=== PATIENT | female | born 1975 | race Hispanic/Latino ===

== ENCOUNTER 2022-12-13 20:49 | Emergency (ER) | payer BC, OTHER ==
[~2022-12-13] VITALS: Ht 162.6 cm; Wt 113.4 kg
[2022-12-13 20:59] VITALS: BP 127/68
[2022-12-13] MEDS ORDERED: KETOROLAC 30MG VIAL (30MG/ML) IM ONE (22:00)
[2022-12-13 22:22] LABS: BASOPHILS % (AUTO) 0.6 % (0.0-5.0); EOSINOPHILS % (AUTO) 2.4 % (0.0-8.0); HEMATOCRIT 41.7 % (36-48); LYMPHOCYTES % (AUTO) 30.9 % (21.0-51.0); MEAN CORPUSCULAR HEMOGLOBIN 29.3 pg (27.0-33.0); MEAN CORPUSCULAR HGB CONC 33.1 g/dL (32.0-36.0); MEAN CORPUSCULAR VOLUME 88.5 fL (79-99); MONOCYTES % (AUTO) 7.1 % (3.0-13.0); NEUTROPHILS % (AUTO) 58.6 % (40.0-77.0); PLATELET COUNT (AUTO) 256 K/uL (130-400); RED BLOOD CELL COUNT(AUTO) 4.71 MIL/uL (4.00-5.50); RED CELL DISTRIBUTION WIDTH 13.2 % (11.0-15.5); WHITE BLOOD COUNT (AUTO) 11.3 K/uL (4.8-10.8)
[2022-12-13 22:27] LABS: APPEARANCE,URINE CLEAR (CLEAR); BILIRUBIN,URINE NEGATIVE (NEGATIVE); COLOR,URINE YELLOW (YELLOW); GLUCOSE, URINE (UA) NEGATIVE (NEGATIVE); KETONES,URINE 5 mg/dL (NEGATIVE); LEUKOCYTE ESTERASE ,URINE 75 Leu/uL (NEGATIVE); NITRATE,URINE NEGATIVE (NEGATIVE); OCCULT BLOOD,URINE SMALL (NEGATIVE); PH,URINE 5.5 (5.0-8.0); PROTEIN,URINE 30 mg/dL (NEGATIVE)
[2022-12-13 22:32] LABS: POTASSIUM 3.3 mmol/L (3.5-5.1)
[2022-12-13] MEDS ORDERED: CYCL10TA16 PO (22:33)
[2022-12-13] MEDS ORDERED: SULF1TAB42 PO (22:36)
[2022-12-13 22:37] LABS: ALBUMIN 3.8 g/dL (3.5-5.0); MUCUS,URINE MOD LPF (None Seen); SQUAMOUS EPITHELIAL CELL,UR RARE /HPF (0-2); TOTAL PROTEIN, SERUM 7.4 g/dL (6.0-8.3)
[2022-12-13] MEDS ORDERED: POTASSIUM BICARB/CIT AC 25 MEQ TABLET.EFF ONE (22:45)
[2022-12-13] MEDS ORDERED: POTASSIUM BICARB/CIT AC 25 MEQ TABLET.EFF PO ONE (23:00)
== END 2022-12-13 22:56 | disposition home or self-care (01) ==
LOC: EDH 20:49
DX: M62.830 Muscle spasm of back (principal); M79.7 Fibromyalgia; N39.0 Urinary tract infection, site not specified; E03.9 Hypothyroidism, unspecified; Z79.1 Long term (current) use of non-steroidal anti-inflammatories (NSAID); Z20.822 Contact with and (suspected) exposure to COVID-19; Z88.0 Allergy status to penicillin
CPT/HCPCS: 99284; 87635; 80053; 85025; 87088; 87880; 87804 ×2; 81001; 36415; 96372; C9803; J1885

== ENCOUNTER 2023-02-23 20:36 | Emergency (ER) | payer BC ==
[~2023-02-23 20:36] MED LIST: CYCL10TA16 PO; SULF1TAB42 PO
== END 2023-02-23 22:14 | disposition left against medical advice (07) ==
LOC: EDH 20:36
DX: K64.9 Unspecified hemorrhoids (principal); Z53.21 Procedure and treatment not carried out due to patient leaving prior to being seen by health care provider

== ENCOUNTER 2024-05-12 13:27 | Emergency (ER) | payer BC ==
[~2024-05-12] VITALS: Ht 165.1 cm; Wt 113.4 kg
[2024-05-12] MEDS: HYDROMORPHONE 1 MG INJ IVP ONE ×2 (14:49→16:19)
[2024-05-12 16:20] LABS: HEMATOCRIT 39.8 % (36-48); MEAN CORPUSCULAR HEMOGLOBIN 29.7 pg (27.0-33.0); MEAN CORPUSCULAR HGB CONC 33.2 g/dL (32.0-36.0); MEAN CORPUSCULAR VOLUME 89.4 fL (79-99); PLATELET COUNT (AUTO) 250 K/uL (130-400); RED BLOOD CELL COUNT(AUTO) 4.45 MIL/uL (4.00-5.50); RED CELL DISTRIBUTION WIDTH 13.1 % (11.0-15.5)
[2024-05-12 16:24] VITALS: BP 140/75; PULSE 83; RESP 18; O2SAT 99
[2024-05-12 16:26] LABS: BASOPHILS # (AUTO) 0.05 K/uL (0.00-0.20); BASOPHILS % (AUTO) 0.4 % (0.0-5.0); EOSINOPHILS # (AUTO) 0.04 K/uL (0.00-0.70); EOSINOPHILS % (AUTO) 0.3 % (0.0-8.0); IMMATURE GRANULOCYTE ABSOLUTE 0.13 K/uL (0-1); LYMPHOCYTES % (AUTO) 16.3 % (21.0-51.0); MONOCYTES # (AUTO) 0.5 K/uL (0.1-1.0); MONOCYTES % (AUTO) 4.4 % (3.0-13.0); NEUTROPHILS # (AUTO) 9.3 K/uL (1.8-7.7); NEUTROPHILS % (AUTO) 77.5 % (40.0-77.0)
[2024-05-12 16:32] LABS: CREATININE 0.7 mg/dL (0.5-1.0); POTASSIUM 3.9 mmol/L (3.5-5.1)
[2024-05-12] MEDS ORDERED: HYDR-4381 PO (16:36)
== END 2024-05-12 17:23 | disposition home or self-care (01) ==
LOC: EDH 13:27
DX: M54.89 Other dorsalgia (principal); E03.9 Hypothyroidism, unspecified; M79.7 Fibromyalgia; Z88.0 Allergy status to penicillin; Z79.899 Other long term (current) drug therapy; Z90.710 Acquired absence of both cervix and uterus; W11.XXXA Fall on and from ladder, initial encounter; Y93.89 Activity, other specified; Y92.89 Other specified places as the place of occurrence of the external cause; Y99.8 Other external cause status
CPT/HCPCS: 99285; 72125; 96374; 80048; 85025; 36415; 71250; 96376; J1170 ×2

== ENCOUNTER 2025-09-20 21:43 | Emergency (ER) | payer BC ==
[~2025-09-20] VITALS: Ht 165.1 cm; Wt 113.4 kg
--- NOTE | 2025-09-21 00:09 | HMCIMG ---
EXAM: CT Head Without IV contrast. CLINICAL HISTORY: Persistent right-sided headache TECHNIQUE: Axial computed tomography images of the head/brain without intravenous contrast. COMPARISON: None provided. FINDINGS: BRAIN: No evidence of acute hemorrhage. No mass lesion. No CT evidence for acute territorial infarct. No midline shift or extra-axial collections. VENTRICLES: No hydrocephalus. ORBITS: The orbits are unremarkable. SINUSES AND MASTOIDS: The paranasal sinuses and mastoid air cells are clear. BONES: No fracture. SOFT TISSUES: Unremarkable. IMPRESSION: No evidence of acute hemorrhage. No mass lesion. No CT evidence for acute territorial infarct. No evidence of any mass lesion or hydrocephalus. /Fritch
--- NOTE | 2025-09-21 00:28 | ERN ---
General Chief Complaint: Headache Stated Complaint: C/O HEADACHE ONSET YESTERDAY Time Seen by MD: 21:44 Time Seen by Midlevel: 21:44 Source: patient History of Present Illness Initial Comments The patient is a 49-year-old female presenting to the emergency department for evaluation of a right-sided headache that started yesterday and progressively worsened today. She denies any vision changes, weakness, numbness, or any other symptoms at this time. Denies any fall or head injury. Denies any nausea, vomiting, or any other symptoms Allergies: Coded Allergies: Penicillins (Unverified Allergy, Unknown, 12/13/22) Home Meds Active Scripts Midodrine HCl (Midodrine HCl) 2.5 Mg Tablet, 2.5 MG PO AD for hypotension, #15 TAB Prov:HAYLEE SANCHEZ MD 04/30/25 Levofloxacin (Levaquin 750Mg Tabs) 750 Mg Tablet, 250 MG PO DAILY for uti for 3 Days, #3 TAB 0 Refills Prov:HAYLEE SANCHEZ MD 04/30/25 Reported Medications Ropinirole HCl (Ropinirole HCl) 2 Mg Tablet, 1 TAB PO HS for 30 Days, #30 TAB 0 Refills 04/29/25 Phentermine HCl (Phentermine HCl) 37.5 Mg Capsule, 1 CAP PO DAILY for 30 Days, #30 CAP 0 Refills 04/29/25 Duloxetine HCl (Duloxetine HCl) 60 Mg Capsule.dr, 1 CAP PO DAILY for 30 Days, #30 CAP 0 Refills 04/29/25 Pregabalin (Pregabalin) 100 Mg Capsule, 1 CAP PO TID MDD 3 Capsule(s) for 30 Days, #90 CAP 0 Refills 04/29/25 Docusate Sodium (Colace) 100 Mg Capsule, 1 CAP PO BID for 30 Days, #60 CAP 0 Refills 04/29/25 Topiramate (Topiramate) 50 Mg Tablet, 1 TAB PO BID for 30 Days, #60 TAB 0 Refills 04/29/25 Levothyroxine Sodium (Levothyroxine) 125 Mcg Capsule, 1 CAP PO DAILY for 30 Days, #30 CAP 0 Refills 04/29/25 Tizanidine HCl (Tizanidine HCl) 2 Mg Capsule, 2 MG PO TID, CAP 04/29/25 Plecanatide (Trulance) 3 Mg Tablet, 3 MG PO DAILY, TAB 04/29/25 Buspirone HCl (Buspirone HCl) 5 Mg Tablet, 1 TAB PO BID for 30 Days, #60 TAB 0 Refills 04/29/25 Cyclobenzaprine HCl (Cyclobenzaprine HCl) 5 Mg Tablet, 1 TAB PO HSPRN PRN for muscle spasms for 30 Days, #30 TAB 0 Refills 04/29/25 Past Medical History Past Medical History: Fibromyalgia, Other Medical History Other: VERTIGO Past Surgical History: Hysterectomy, Other ROS Dictation CONSTITUTIONAL: Negative except for HPI HEAD/FACE: Negative except for HPI EENT: Negative except for HPI RESPIRATORY: Negative except for HPI GASTROINTESTINAL/ABDOMINAL: Negative except for HPI GENITOURINARY: Negative except for HPI MUSCULOSKELETAL: Negative except for HPI INTEGUMENTARY: Negative except for HPI NEUROLOGICAL/PSYCH: Negative except for HPI HEMATOLOGIC/LYMPHATIC: Negative except for HPI All Systems Negative, Except as noted above. 13 point review of systems assessed and all negative except for above. Physical Exam Physical Exam Dictation Vital Signs reviewed General Appearance: Alert, oriented x 3, no acute distress, well developed, nourished. Head and Face: non-traumatic. Eyes: PERRL, pink conjunctivas, eyelid no trauma, anterior chamber with arcus senilis. Ears: Pinnas intact and no signs of trauma or erythema ear canals clear and no discharge TM no erythema Nose: No discharge, no bleeding. Oropharynx: Mouth normal, tongue pink, pharynx clear,no erythema, tonsils no exudates, no abscesses noted, mucous membrane moist Neck: Supple, non-tender, no thyromegaly, no masses, no JVD, no bruits Breast:Deferred Chest:No tenderness, no crepitus, no paradoxical movement, no retractions Lungs:Clear, well-ventilated, symmetric, no rales, no wheezing, no rhonchi, no stridor, good breath sounds bilaterally Heart: Regular rate, regular rhythm, no murmur, no gallops Vascular: no peripheral edema, Abdomen: Soft, positive bowel sounds, nondistended, no guarding, nontender, no rebound, no masses no hepatomegaly, no splenomegaly, no Love's sign, no hernias. Rectal: Deferred Genital: Deferred Neurological: Normal speech, motor function intact, sensory function intact Musculoskeletal: Neck nontender, full range of motion, back nontender, full range of motion, Extremities: nontender, full range of motion Skin: Color pink, dry, no turgor, no rash, no lacerations, no abrasions, no contusions. Lymphatic: Deferred MDM MDM: Differential diagnosis: Migraine headache, tension headache, cervical radiculopathy There are no social concerns with this patient. Prescription drug management Prescriptions will include: Medical management and examination interpretation discussions were had by me with other qualified healthcare professionals as indicated for the patient's care. ED Course Orders Procedure Category Date Status Time Ketorolac PHA 09/20/25 Complete Tromethamine 15mg/Ml 23:00 Diphenhydramine Hcl PHA 09/20/25 Complete (Benadryl Inj) 23:00 Dexamethasone 4mg/Ml PHA 09/20/25 Complete 1ml Vial (Dexametha 23:00 Ct Head/Brain W/O CT 09/20/25 Resulted Contrast 22:41 Current Medications Medications (Trade) Dose Ordered Sig/[place] Route PRN Reason Start Time Stop Time Status Last Admin Dose Admin Dexamethasone Sodium Phosphate (dexaMETHasone 4MG/ML 1ML VIAL) 4 mg ONCE ONCE IV 09/20/25 23:00 09/20/25 23:01 DC 09/20/25 23:15 Diphenhydramine HCl (BENAdryl INJ) 25 mg ONCE ONCE IV 09/20/25 23:00 09/20/25 23:01 DC 09/20/25 23:15 Ketorolac Tromethamine (toRADol) 15 mg ONCE ONCE IV 09/20/25 23:00 09/20/25 23:01 DC 09/20/25 23:15 Vital Signs Date Time Temp Pulse Resp B/P (MAP) Pulse Ox O2 Delivery O2 Flow Rate FiO2 09/20/25 23:31 74 18 118/61 97 Room Air* 0 21 09/20/25 21:44 97.0 77 20 122/79 97 Room Air DX & DISP Disposition: Discharge Departure Impression: Primary Impression: Migraine headache Condition: Stable Referrals: NAIBL MAYS MD (PCP) I have reviewed the case, and I agree with, Diagnosis and Plan I performed the substantive portion of the visit. I have reviewed and personally made and approve the management plan that is documented in the note by myself or the [facility]. I acknowledge for responsibility for the patient's management plan. MAGY GIFFORD PAC Sep 21, 2025 00:28
[2025-09-21 01:18] VITALS: BP 118/68; PULSE 80; RESP 18; TEMP 98.2; O2SAT 98
== END 2025-09-21 01:19 | disposition home or self-care (01) ==
LOC: EDH 21:43
DX: G43.909 Migraine, unspecified, not intractable, without status migrainosus (principal); M79.7 Fibromyalgia; Z79.890 Hormone replacement therapy; Z79.899 Other long term (current) drug therapy; Z88.0 Allergy status to penicillin; Z90.710 Acquired absence of both cervix and uterus
CPT/HCPCS: 99284; 96374; 70450; 96375 ×2; J1100; J1885; J1200; J2270; J2405